=== PATIENT | female | born 2000 | race Hispanic/Latino ===

== ENCOUNTER 2024-04-25 22:53 | Emergency (ER) | payer BC ==
[~2024-04-25] VITALS: Ht 152.4 cm; Wt 54.4 kg
[2024-04-25 23:40] VITALS: TEMP 97.9
[2024-04-26 01:00] VITALS: PULSE 78; RESP 18
[2024-04-26] MEDS: ACETAMINOPHEN 325 MG TAB PO ONE (01:01)
[2024-04-26] MEDS: ONDANSETRON HCL 4 MG ORAL DISINTEGRATING TAB PO ONE (01:01)
[2024-04-26] MEDS ORDERED: ONDANSETRON ODT4 MG SL (01:46)
[2024-04-26 02:04] VITALS: BP 111/72; PULSE 70; RESP 16; TEMP 98.2; O2SAT 100
== END 2024-04-26 01:55 | disposition home or self-care (01) ==
LOC: ER 23:03
DX: S06.0X0A Concussion without loss of consciousness, initial encounter (principal); R51.9 Headache, unspecified; S00.01XA Abrasion of scalp, initial encounter; S40.211A Abrasion of right shoulder, initial encounter; W17.89XA Other fall from one level to another, initial encounter; Y92.89 Other specified places as the place of occurrence of the external cause
CPT/HCPCS: 70450; 70486; 72125; 99284; Q0162

== ENCOUNTER 2024-05-01 20:26 | Emergency (ER) | payer BC ==
[~2024-05-01] VITALS: Ht 152.4 cm; Wt 54.4 kg
[~2024-05-01 20:26] MED LIST: ONDANSETRON ODT4 MG SL
[2024-05-01 20:44] VITALS: TEMP 99.1
[2024-05-01] MEDS: SODIUM CHLORIDE 0.9% 1000ML 1,000 ML IV ONE (21:04)
[2024-05-01] MEDS: ONDANSETRON HCL INJ 2MG/ML 2ML 2 MG/ML VIAL IV STA (21:04)
[2024-05-01 21:08] LABS: BASOPHILS % 0.3 % (0.0-1.0); EOSINOPHILS # (AUTO) 0.2 (0.0-0.4); EOSINOPHILS % 1.7 % (0.0-6.0); HEMOGLOBIN 14.5 g/dL (12.0-16.0); LYMPHOCYTES # (AUTO) 2.5 (1.0-3.2); LYMPHOCYTES % 24.9 % (18.0-39.1); MEAN CORPUSCULAR HEMOGLOBIN 31.3 pg (28-32); MONOCYTES # (AUTO) 0.8 (0.2-0.8); MONOCYTES % 8.2 % (4.4-11.3); NEUTROPHILS # (AUTO) 6.4 (2.1-6.9); NEUTROPHILS % 64.6 % (38.7-80.0); PLATELET COUNT 200 x10e3/uL (140-360); RED BLOOD COUNT 4.63 x10e6/uL (3.6-5.1); RED CELL DISTRIBUTION WIDTH 12.1 % (11.7-14.4); WHITE BLOOD COUNT 9.85 x10e3/uL (4.8-10.8)
[2024-05-01 21:24] LABS: COVID 19 ANTIGEN NOT DETECTED (NEGATIVE)
[2024-05-01 21:35] LABS: ALANINE AMINOTRANSFERASE 84 IU/L (0-55); ALBUMIN 5.2 g/dL (3.5-5.0); ALBUMIN/GLOBULIN RATIO 1.4 (0.8-2.0); ALKALINE PHOSPHATASE 75 IU/L (40-150); ANION GAP 22.7 mmol/L (8-16); BILIRUBIN,TOTAL 0.4 mg/dL (0.2-1.2); BLOOD UREA NITROGEN 8 mg/dL (7-26); BUN/CREATININE RATIO 10 (6-25); CALCIUM 10.5 mg/dL (8.4-10.2); CARBON DIOXIDE 15 mmol/L (22-29); CHLORIDE 105 mmol/L (98-107); CREATININE, SERUM 0.78 mg/dL (0.57-1.11); EST GLOMERULAR FILTRATION RATE 110 ML/MIN (>=60); GLUCOSE 92 mg/dL (74-118); POTASSIUM 3.7 mmol/L (3.5-5.1); SODIUM 139 mmol/L (136-145); TOTAL PROTEIN 8.9 g/dL (6.5-8.1)
[2024-05-01 21:38] LABS: INFLUENZAE A&B ANTIGEN (RAPID) NEGATIVE (NEGATIVE); RESPIRATORY SYNC. VIRUS NEGATIVE (NEGATIVE)
[2024-05-01 22:21] LABS: BILIRUBIN,URINE NEGATIVE (NEGATIVE); CLARITY,URINE CLEAR (CLEAR); COLOR,URINE YELLOW (YELLOW); GLUCOSE, URINE NEGATIVE (NEGATIVE); KETONES,URINE 2+ (NEGATIVE); LEUKOCYTE ESTERASE ,URINE TRACE (NEGATIVE); NITRITE,URINE NEGATIVE (NEGATIVE); PH,URINE 7.5 (5 - 7); PROTEIN,URINE DIPSTICK NEGATIVE (NEGATIVE); URINE UROBILINOGEN 0.2 mg/dL (0.2 - 1)
[2024-05-01 22:22] LABS: PREGNANCY TEST, URINE NEGATIVE (NEGATIVE)
[2024-05-01 22:28] LABS: BACTERIA,URINE MANY /HPF; EPITHELIAL CELLS,URINE MANY /LPF
[2024-05-01] MEDS ORDERED: CEFDINIR300 MG PO (22:40)
[2024-05-01 22:41] VITALS: PULSE 67; RESP 16
[2024-05-01] MEDS: CEFDINIR 300 MG CAP PO ONE (22:50)
[2024-05-01 22:51] VITALS: BP 109/68; PULSE 67; RESP 16; TEMP 99.3; O2SAT 100
== END 2024-05-01 23:01 | disposition home or self-care (01) ==
LOC: ER 20:47
DX: R50.9 Fever, unspecified (principal); N39.0 Urinary tract infection, site not specified; R11.2 Nausea with vomiting, unspecified; R53.1 Weakness; Z11.52 Encounter for screening for COVID-19
CPT/HCPCS: 0223U; 36415; 80053; 81001; 81025; 85025; 87400; 87420; 99284; J2405; J7030